=== PATIENT | female | born 1970 | race Native Hawaiian/Other Pacific Islander ===

== ENCOUNTER → 2016-10-23 | Outpatient (CLI) | payer BC ==
--- NOTE | 2016-10-23 09:22 | MA ---
Screening Digital Mammogram With iCAD Analysis Clinical Indications: Routine screening. An aunt was diagnosed with breast cancer in her 40s and a gr andmother in her 50s. Technique: Standard cephalocaudal and mediolateral oblique projections were obtained. This examinatio n was processed by the iCAD computer aided detection system. Comparison: June 2015 and November 2014. Breast density: Type C; Heterogeneously dense. Findings: CAD was reviewed. No masses, suspicious calcifications or other signs of malignancy are id entified. There has been no significant change in the appearance of either breast. Impression: Negative mammogram. BI-RADS 1. Recommendation: Routine mammographic screening in one year as long as physical examination is negativ e. [facility] will send a result letter to the patient. Dense breast parenchyma diminishes mammographic sensitivity. Negative mammography should not preclude additional workup of a clinically suspicious finding. The patient's information is entered into a reminder system with a target due date for her next mammo gram.
== END ==
LOC: CIMAGING 08:03
DX: Z12.31 Encounter for screening mammogram for malignant neoplasm of breast (principal); Z80.3 Family history of malignant neoplasm of breast
CPT/HCPCS: G0202

== ENCOUNTER 2016-10-26 10:48 | Emergency (ER) | payer BC ==
[2016-10-26 11:08] VITALS: BP 121/70; PULSE 75; RESP 14; TEMP 97.5; O2SAT 98
--- NOTE | 2016-10-26 11:08 | UCPHY ---
H & P Patient Type: New Time Seen by Provider: 10/26/16 10:58 HPI/ROS: CHIEF COMPLAINT: Right ankle and leg pain HISTORY OF PRESENT ILLNESS: The patient is a 45-year-old female who comes to the Urgent Care after she slipped walking her dog last night. She has pain in her right ankle and fibular neck. She has not been able to walk. No fevers. No lacerations. No other injuries. No knee or hip pain. REVIEW OF SYSTEMS: Constitutional: denies: chills, fever, recent illness, recent injury EENTM: denies: blurred vision, double vision, nose congestion Respiratory: denies: cough, shortness of breath Cardiac: denies: chest pain, irregular heart rate, lightheadedness, palpitations Gastrointestinal/Abdominal: denies: abdominal pain, diarrhea, nausea, vomiting, blood streaked stools Genitourinary: denies: dysuria, frequency, hematuria, pain Musculoskeletal: See HPI Skin: denies: lesions, rash, jaundice, bruising Neurological: denies: headache, numbness, paresthesia, tingling, dizziness, weakness Hematologic/Lymphatic: denies: blood clots, easy bleeding, easy bruising Immunologic/allergic: denies: HIV/AIDS, transplant EXAM: GENERAL: Well-appearing, well-nourished and in no acute distress. HEAD: Atraumatic, normocephalic. EYES: Pupils equal round and reactive to light, extraocular movements intact, sclera anicteric, conjunctiva are normal. ENT: TMs normal, nares patent, oropharynx clear without exudates. Moist mucous membranes. NECK: Normal range of motion, supple without lymphadenopathy or JVD. LUNGS: Breath sounds clear to auscultation bilaterally and equal. No wheezes rales or rhonchi. HEART: Regular rate and rhythm without murmurs, rubs or gallops. ABDOMEN: Soft, nontender, normoactive bowel sounds. No guarding, no rebound. No masses appreciated. BACK: No CVA tenderness, no spinal tenderness, step-offs or deformities EXTREMITIES: Pain and swelling and bruising to right ankle. No bony tenderness. Pain in the lateral aspect of lower leg. No deformity or swelling. NEUROLOGICAL: Cranial nerves II through XII grossly intact. Normal speech. 5/ 5 strength, normal movement in all extremities, normal sensation PSYCH: Normal mood, normal affect. SKIN: Warm, dry, normal turgor, no visible rashes or lesions. Source: Patient Exam Limitations: No limitations - Medical/Surgical History Hx Asthma: No Hx Chronic Respiratory Disease: No Hx Diabetes: No Hx Cardiac Disease: No Hx Renal Disease: No Hx Cirrhosis: No - Family History Significant Family History: No pertinent family hx - Social History Smoking Status: Never smoked Alcohol Use: Sober Drug Use: None Constitutional: Initial Vital Signs Temperature (C) 36.4 C 10/26/16 11:05 Heart Rate 75 10/26/16 11:05 Respiratory Rate 14 10/26/16 11:05 Blood Pressure 121/70 H 10/26/16 11:05 O2 Sat (%) 98 10/26/16 11:05 O2 Delivery Mode Room Air Allergies/Adverse Reactions: latex Allergy (Verified 10/26/16 11:09) Home Medications: Medication Instructions Recorded IBUPROFEN 10/26/16 Ondansetron Odt [Zofran Odt 4 mg 4 mg PO Q4 PRN #20 tab 10/26/16 (RX)] Percocet 10-325 mg Tablet 10/26/16 oxyCODONE/APAP 5/325 [Percocet 1 - 2 tab PO Q4-6PRN PRN #14 tab 10/26/16 5/325 (RX)] Medical Decision Making - Diagnostics Imaging: X-ray: Ankle and leg x-rays were obtained. I viewed the images myself on the PACS system. My interpretation of the images is: Old-appearing talus injury, proximal fibula fracture. The radiologist interpretation is is same. ED Course/Re-evaluation: We discussed the x-ray results. The patient does not have any known previous ankle injuries. I will place her in a long posterior splint and make her nonweightbearing and have her follow up with Orthopedics. I do not see an obvious fracture of the ankle but the talar dome does have a necrosis versus fracture. I recommended follow-up MRI if she is having chronic pain. She understands this plan. She clearly has a ligamentous injury involved . Differential Diagnosis: Partial list of the Differential diagnosis considered include but were not limited to; ankle fracture, ankle sprain, Masonnev fracture and although unlikely based on the history and physical exam, I also considered DVT, infection. I discussed these differential diagnoses and the plan with the patient as well as the usual and expected course. The patient understands that the diagnosis is provisional and that in medicine we are not always correct and that further workup is often warranted. Usual and customary warnings were given. All of the patient's questions were answered. The patient was instructed to return to the emergency department should the symptoms at all worsen or return, otherwise to followup with the physician as we discussed. - Data Points Medications Given: Discontinued Medications Ondansetron HCl (Zofran Odt) 4 mg PO EDNOW ONE Stop: 10/26/16 12:28 Last Admin: 10/26/16 12:35 Dose: 4 mg Oxycodone/Acetaminophen (Percocet 5/325) 2 tab PO EDNOW ONE Stop: 10/26/16 12:28 Last Admin: 10/26/16 12:39 Dose: 2 tab Departure - Departure Disposition: Home, Routine, Self-Care Clinical Impression: Ankle sprain Qualifiers: Encounter type: initial encounter Involved ligament of ankle: deltoid ligament Laterality: right Qualifier Code: (S93.421A) Sprain of deltoid ligament of right ankle, initial encounter Fibular upper end fracture Qualifiers: Encounter type: initial encounter Fracture type: closed Laterality: right Condition: Fair Instructions: Ankle Sprain (ED), Leg Fracture (ED) Referrals: Maureen Escobar MD [Primary Care Provider] - As per Instructions Shayy Salcido MD [Medical Doctor] - As per Instructions Prescriptions: oxyCODONE/APAP 5/325 [Percocet 5/325 (RX)] 1 - 2 tab PO Q4-6PRN PRN #14 tab PRN Reason: Pain Ondansetron Odt [Zofran Odt 4 mg (RX)] 4 mg PO Q4 PRN #20 tab PRN Reason: Nausea & Vomiting - PQRS PQRS Measurement: Not applicable
--- NOTE | 2016-10-26 11:43 | DX ---
Right tibia and fibula series 2 views Right ankle series 3 views History: Slipped on ice last evening with pain. Findings: Right tibia and fibula: There is a nondisplaced fracture proximal shaft right fibula. No additional f ractures are seen about the right tibia and fibula. The knee joint is normal in appearance. Soft tiss ues are unremarkable. Right ankle series: There is lucency along the medial talar dome. On the lateral view there is a calc ification projected along the posterior ankle joint that could intra-articular calcific fragment that may be chronic. No acute fractures are seen about the right ankle. Ankle mortise otherwise has a nor mal contour. There is some soft tissue swelling laterally. Impression: 1. Nondisplaced oblique fracture proximal fibular shaft. 2. Subtle lucency at the medial talar dome that may be a chronic finding possibly from underlying pre vious trauma and focal osteonecrosis versus possibility of osteochondritis desiccans. 3. Calcific fragments along the posterior ankle joint. This could represent intra-articular calcifica tion possibly from prior remote trauma that could be related to the medial talar dome abnormality. If indicated, consider MRI of the right ankle at some point for further characterization. These findings were discussed by telephone with Dr. Felipe Lozoya at 1142 hrs.
[2016-10-26] MEDS ORDERED: ONDANSETRON DISINTEGRATING 4 MG TAB PO ONE (12:27)
[2016-10-26] MEDS ORDERED: OXYCODONE/APAP 5/325 TAB PO ONE (12:27)
== END 2016-10-26 13:15 | disposition home or self-care (01) ==
LOC: CED 10:48
DX: S82.434A Nondisplaced oblique fracture of shaft of right fibula, initial encounter for closed fracture (principal); M25.871 Other specified joint disorders, right ankle and foot; W19.XXXA Unspecified fall, initial encounter; Y93.K1 Activity, walking an animal
CPT/HCPCS: 73590-PO; 73610-PO; 99204-PO; G0463-PO

== ENCOUNTER → 2017-11-21 | Outpatient (CLI) | payer BC | LOC: CIMAGING 07:11 | PROVIDERS: ATTEND Family Medicine | DX: Z12.31 Encounter for screening mammogram for malignant neoplasm of breast (principal); Z80.3 Family history of malignant neoplasm of breast ==

== ENCOUNTER → 2017-11-27 | Outpatient (CLI) | payer BC | LOC: CIMAGING 13:15 | PROVIDERS: ATTEND Family Medicine | DX: N63.20 Unspecified lump in the left breast, unspecified quadrant (principal); Z80.3 Family history of malignant neoplasm of breast | CPT/HCPCS: 76641-PO ==

== ENCOUNTER → 2018-01-14 | Outpatient (CLI) | payer BC ==
[~2018-01-14] MED LIST: BUPIVACAINE 0.5% 30 ML SDV ONE; LIDOCAINE 1% 300 MG/30 ML SDV ONE; THROMBIN (BOVINE) 5,000 UNIT VIAL TP ONE
== END ==
LOC: FIMAGING 07:17
PROVIDERS: ATTEND Family Medicine
PROC: 0HBU3ZX Excision of Left Breast, Percutaneous Approach, Diagnostic (ICD-10-PCS; principal; 2018-01-14)
DX: D24.2 Benign neoplasm of left breast (principal)